=== PATIENT | female | born 1995 | race Caucasian/White ===

== ENCOUNTER 2016-06-10 18:38 | Emergency (ER) | payer BC, OTHER ==
[~2016-06-10] VITALS: Ht 172.7 cm; Wt 61.0 kg
[2016-06-10 19:22] VITALS: TEMP 36.9; Ht 172.7 cm; Wt 61.0 kg
--- NOTE | 2016-06-10 19:40 | EMERGENCY ROOM VISIT NOTE ---
History Report prepared by Rom: Melvin Kerns Under the Supervision of: Dr. Jarred Curtis D.O. First contact with patient: 19:33 Chief Complaint: SHOULDER PAIN Stated Complaint: RT SHOULDER PAIN History of Present Illness The patient is a 21 year old female who presents to the Emergency Room with complaints of resolved right shoulder pain that started prior to arrival today. She says that she was doing shoulder press at the gym, and her right shoulder came out of the socket. The patient thinks that she popped it back in. She had a lot of pain for a while, but her pain is gone now. The patient says that she had some numbness in the shoulder when it first popped out. She says that she has never hurt her shoulder before. She did not take any medications for it today. She denies any other pain or injuries. The patient has no chronic medical problems and has no surgical history. She does not use tobacco products or drink alcohol. Source of History: patient Onset: Prior to arrival today Position: shoulder (right) Quality: other (came out of socket, the popped it back in) Timing: resolved Associated Symptoms: + numbness (but resolved now) Note: Associated symptoms: Denies any pain. Review of Systems See HPI for pertinent positives & negatives. A total of 10 systems reviewed and were otherwise negative. Past Medical & Surgical Medical Problems: (1) No chronic problems Family History No pertinent family history Social History Smoking Status: Never Smoker Smokeless Tobacco Use: No Alcohol Use: none Housing Status: lives with roommate Occupation Status: [employer] student Allergies Coded Allergies: No Known Allergies (Unverified , 06/10/16) Physical Exam Vital Signs Date Time Temp Pulse Resp B/P Pulse Ox O2 Delivery O2 Flow Rate FiO2 06/10/16 20:10 70 16 119/75 99 Room Air 06/10/16 19:22 36.9 76 18 130/89 99 Room Air Physical Exam GENERAL: Patient is awake, alert, and in no acute distress. Patient is resting comfortably and showing no signs of anxiety EYES: The conjunctivae are clear. The pupils are round and reactive. EARS, NOSE, MOUTH AND THROAT: The nose is without any evidence of any deformity. Mucous membranes are moist tongue is midline NECK: The neck is nontender and supple. RESPIRATORY: Normal respiratory effort is noted there is no evidence of wheezing rhonchi or rales CARDIOVASCULAR: Regular rate and rhythm noted there no murmurs rubs or gallops normal S1 normal S2 GASTROINTESTINAL: The abdomen is soft. Bowel sounds are present in all quadrants. Abdomen is nontender MUSCULOSKELETAL/EXTREMITIES: There is no deformity or swelling over right shoulder. Range of motion was mildly painful but intact, no numbness over right deltoid. SKIN: There is no obvious evidence of any rash. There are no petechiae, pallor or cyanosis noted. NEUROLOGIC: Patient is awake alert and oriented x3. Medical Decision & Procedures ER Provider Diagnostic Interpretation: X-ray results as stated below per interpretation by me and the radiologist. RIGHT SHOULDER 3 VIEWS CLINICAL HISTORY: Right shoulder pain. Dislocation/relocation injury. FINDINGS: 3 views of the right shoulder are obtained. No prior studies are available for comparison at the time of dictation. The skeletal structures are well mineralized. No distracted fracture is seen. A Hill-Sachs lesion is questioned in the humeral head. The glenohumeral and acromioclavicular joints appear maintained. The overlying soft tissues are within normal limits. The imaged right lung parenchyma appears clear. IMPRESSION: Suspect a Hill-Sachs lesion in the humeral head. No additional abnormality is identified. Electronically signed by: Hugh Christine M.D. 06/10/2016 8:15 PM Dictated Date/Time: 06/10/2016 8:13 PM ED Course 1934: The patient was evaluated in room D5. A complete history and physical examination were performed. 1953: Upon reevaluation, the patient is feeling fine. I discussed the results and treatment plan with her. She verbalized agreement of the treatment plan. She was discharged home. Medical Decision Differential diagnosis: Etiologies such as fracture, dislocation, neurovascular compromise, compartment syndrome, soft tissue injury, as well as others were entertained. Nursing notes reviewed. The patient is a 21-year-old female who presented to emergency department for an evaluation of right shoulder injury. The patient states that she was lifting weights in an inclined position when she felt her right shoulder, out of place. She states it was severely painful initially but "went back into place" prior to arrival. She states pain is significantly improved and she did not wish to have any pain medication at this time. The patient's x-ray did reveal possible health Sachs deformity of the humeral head. At this time I do feel it is likely she had a shoulder dislocation with spontaneous reduction prior to arrival. I discussed this with the patient. She was encouraged to rest and avoid any strenuous activity. She was also encouraged to avoid any movements that right upper extremity over her head. She was also encouraged to follow-up with her primary care physician or the orthopedic physician as soon as possible for further evaluation but return to the emergency department immediately if symptoms change worsen or the need arises. Impression Primary Impression: Dislocation of right shoulder joint Additional Impression: Strain of right rotator cuff capsule Scribe Attestation The scribe's documentation has been prepared under my direction and personally reviewed by me in its entirety. I confirm that the note above accurately reflects all work, treatment, procedures, and medical decision making performed by me. Departure Information Dispostion Home / Self-Care Referrals No Doctor, Assigned (PCP) Forms HOME CARE DOCUMENTATION FORM, IMPORTANT VISIT INFORMATION, School Instructions, Work Instructions Patient Instructions ED Dislocation Shoulder Redu, My [facility] [address] Additional Instructions Continue using Motrin and Tylenol as directed for pain. Rest her shoulder as much as possible. Follow-up with [facility] this week for reevaluation. I would recommend a referral to an orthopedic physician if pain does not improve. Do not go back to lifting weights until your cleared by the orthopedic physician or [facility]. Problem Qualifiers Primary Impression: Dislocation of right shoulder joint Encounter type: initial encounter Qualified Codes: S43.004A - Unspecified dislocation of right shoulder joint, initial encounter Additional Impression: Strain of right rotator cuff capsule Encounter type: initial encounter Qualified Codes: S46.011A - Strain of muscle(s) and tendon(s) of the rotator cuff of right shoulder, initial encounter
[2016-06-10 20:10] VITALS: BP 119/75; PULSE 70; O2SAT 99
--- NOTE | 2016-06-10 20:16 | DIAGNOSTIC IMAGING REPORT ---
RIGHT SHOULDER 3 VIEWS CLINICAL HISTORY: Right shoulder pain. Dislocation/relocation injury. FINDINGS: 3 views of the right shoulder are obtained. No prior studies are available for comparison at the time of dictation. The skeletal structures are well mineralized. No distracted fracture is seen. A Hill-Sachs lesion is questioned in the humeral head. The glenohumeral and acromioclavicular joints appear maintained. The overlying soft tissues are within normal limits. The imaged right lung parenchyma appears clear. IMPRESSION: Suspect a Hill-Sachs lesion in the humeral head. No additional abnormality is identified. Electronically signed by: Hugh Christine M.D. 06/10/2016 8:15 PM Dictated Date/Time: 06/10/2016 8:13 PM
== END 2016-06-10 20:08 | disposition home or self-care (01) ==
LOC: C.EDB 18:41 → C.EDD 20:08
DX: S43.004A Unspecified dislocation of right shoulder joint, initial encounter (principal); S46.001A Unspecified injury of muscle(s) and tendon(s) of the rotator cuff of right shoulder, initial encounter; X50.0XXA Overexertion from strenuous movement or load, initial encounter; Y93.B3 Activity, free weights; Y99.8 Other external cause status; Y92.838 Other recreation area as the place of occurrence of the external cause